=== PATIENT | female | born 1965 | race African-American/Black ===

== ENCOUNTER 2018-04-28 19:20 | Emergency (ER) | payer MEDICAID ==
[~2018-04-28] VITALS: Ht 160 cm; Wt 122.9 kg
[~2018-04-28 19:20] MED LIST: AFRIN15 ML NASAL; ALBUTEROL SULF8.5 GM INH; NORCO 5-325 TA1 EACH ORAL
[2018-04-28 19:34] VITALS: BP 118/66
[2018-04-28] MEDS ORDERED: Bacitracin Oint UD TOPIC ONE (19:45)
--- NOTE | 2018-04-28 19:50 | Emergency Room Report ---
History of Present Illness General Chief Complaint: Wound Recheck/Suture Removal Present Illness HPI 52-year-old female presents to the emergency department complaining of, tenderness, heart needing and mild swelling to the lateral aspect of the right index finger. Patient status post puncture wound by 95 days ago. Patient states that it was a clean knife and does not suspect foreign body however she states she was in a hurry and is not sure she cleaned it well enough. Patient states she is up-to-date with tetanus vaccination. Patient denies erythema, fevers or chills. Patient reports that yesterday she was squeezing the wound and some purulent discharge came out. Patient denies difficulty bending her finger pain with bending the finger joints that are nearby. Allergies: Coded Allergies: NO KNOWN ALLERGIES (Unverified Allergy, Unknown, 07/24/15) Patient History Past Medical History: see triage record Past Surgical History: none Pertinent Family History: none Last Menstrual Period: MENOPAUSE Now: No Immunizations: UTD Reviewed Nursing Documentation: PMH: Agreed; PSxH: Agreed Nursing Documentation-PMH Hx Hypertension: Yes Hx Gastrointestinal Problems: Yes - GERD Review of Systems All Other Systems: negative except mentioned in HPI Physical Exam Vital Signs Date Time Temp Pulse Resp B/P (MAP) Pulse Ox O2 Delivery O2 Flow Rate FiO2 04/28/18 19:24 98.5 72 18 118/66 96 Room Air 98.4 Sp02 EP Interpretation: reviewed, normal General Appearance: no apparent distress, alert, GCS 15, non-toxic Head: normocephalic, atraumatic ENT: hearing grossly normal, normal voice Neck: full range of motion Respiratory: lungs clear, normal breath sounds, speaking full sentences Cardiovascular #1: regular rate, rhythm Musculoskeletal: back normal, gait/station normal, normal range of motion, non- tender Neurologic: alert, oriented x3, responsive, motor strength/tone normal, sensory intact, speech normal, grossly normal Psychiatric: judgement/insight normal Skin: normal color, no rash, warm/dry, well hydrated, other - healing laceration of the lateral right index finger approx 1 cm in length, swelling. induration noted no erythema , no obvious pus/dc noted. palpable scar tissue. Medical Decision Making PA Attestation Dr. Garcia is my supervising Physician whom patient management has been discussed with. Diagnostic Impression: Primary Impression: Puncture wound of finger, right Qualified Codes: S61.239A - Puncture wound without foreign body of unspecified finger without damage to nail, initial encounter ER Course 52-year-old female presents to the emergency department complaining of, tenderness, heart needing and mild swelling to the lateral aspect of the right index finger. Patient status post puncture wound by 95 days ago. Patient states that it was a clean knife and does not suspect foreign body however she states she was in a hurry and is not sure she cleaned it well enough. Patient states she is up-to-date with tetanus vaccination. Patient denies erythema, fevers or chills. Patient reports that yesterday she was squeezing the wound and some purulent discharge came out. Patient denies difficulty bending her finger pain with bending the finger joints that are nearby. Ddx considered but are not limited to laceration, tendon injury, cellulitis, amputation Vital signs: are WNL, pt. is afebrile H&PE are most consistent with: healing laceration of the lateral right index finger approx 1 cm in length, swelling. induration noted no erythema , no obvious pus/dc noted. palpable scar tissue. ORDERS: none required at this time, the diagnosis is clinical ED INTERVENTIONS: -Bacitracin and sterile dressing is applied. Discussed with patient that scar tissue formation is highly likely however due to new onset of tenderness and hx of pus yesterday will place pt onto oral abx. 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 DISCHARGE: At this time pt. is stable for d/c to home. Will provide printed patient care instructions, and any necessary prescriptions. Care plan and follow up instructions have been discussed with the patient prior to discharge. Last Vital Signs Date Time Temp Pulse Resp B/P (MAP) Pulse Ox O2 Delivery O2 Flow Rate FiO2 04/28/18 19:34 98.4 76 18 118/66 96 Room Air 98.4 Disposition: HOME, SELF-CARE Condition: Stable Scripts Cephalexin* (KEFLEX*) 500 Mg Capsule 500 MG ORAL EVERY 12 HOURS for 7 Days, #14 CAP 0 Refills Prov: Tasia Galaviz 04/28/18 Bacitracin/Polymyxin B Sulfate (BACITRACIN-POLYMYXIN OINTMENT) 28.35 Gm Oint...g. 1 APPLIC TP BID, #28.3 GM Prov: Tasia Galaviz 04/28/18 Referrals: NON PHYSICIAN (PCP) Patient Instructions: Wound Check Additional Instructions: Take medications as directed. Follow up with a Primary Care Provider in 3-5 days, even if your symptoms have resolved. --Please review list of primary care clinics, if you do not already have a primary care provider Return sooner to ED if new symptoms occur, or current symptoms become worse. - Please note that this Emergency Department Report was dictated using hikedistribution agent technology software, occasionally this can lead to erroneous entry secondary to interpretation by the dictation equipment. Tasia Galaviz Apr 28, 2018 19:50
[2018-04-28] MEDS ORDERED: BACITRACIN-P28.35 GM TP (19:51)
[2018-04-28] MEDS ORDERED: CEPHALEXIN500 MG ORAL (19:53)
[2018-04-28 20:01] VITALS: BP 118/66
== END 2018-04-28 20:01 | disposition home or self-care (01) ==
LOC: EMR 19:44
DX: Z51.89 Encounter for other specified aftercare (principal); S61.239A Puncture wound without foreign body of unspecified finger without damage to nail, initial encounter; K21.9 Gastro-esophageal reflux disease without esophagitis; I10 Essential (primary) hypertension
CPT/HCPCS: 99283

== ENCOUNTER 2019-06-10 16:53 | Emergency (ER) | payer MEDICAID ==
[~2019-06-10] VITALS: Ht 162.6 cm; Wt 99.8 kg
[~2019-06-10 16:53] MED LIST changes: +BACITRACIN-P28.35 GM TP; +CEPHALEXIN500 MG ORAL; +COLACE100 MG ORAL; +COUMADIN4 MG ORAL; +FLECAINIDE ACET50 M1 PO; +IRON325 M1 PO; +MICROZIDE12.5 M1 PO; +MULTIVITAMINS1 EAC2 ORAL; +VITAMIN C250 MG ORAL
[2019-06-10 17:06] VITALS: BP 128/77
--- NOTE | 2019-06-10 17:07 | NUR ---
ED Nurse Note: pt walked in to ED for C/O headache in the frontal head area. pt also c/o dizziness and blurry vision while she was driving which happened about 30 min prior. pt is alert x4. VSS
--- NOTE | 2019-06-10 17:27 | NUR ---
ED Nurse Note: blood and urine sample sent down to lab. pt was taken to take CT by tech
[2019-06-10 17:40] LABS: APPEARANCE,URINE CLOUDY; BILIRUBIN, URINE NEGATIVE (NEGATIVE); GLUCOSE, URINE (UA) NEGATIVE (NEGATIVE); KETONES,URINE NEGATIVE (NEGATIVE); LEUKOCYTE ESTERASE ,URINE 3+ (NEGATIVE); NITRITE,URINE NEGATIVE (NEGATIVE); PH,URINE 6 (4.5-8.0); PROTEIN,URINE 2+ (NEGATIVE); UROBILINOGEN,URINE NORMAL MG/DL (0.0-1.0)
--- NOTE | 2019-06-10 17:42 | Emergency Room Report ---
History of Present Illness General Chief Complaint: Dizziness Source: Patient Present Illness HPI Disclaimer: Please note that this report is being documented using DRAGON technology. This can lead to erroneous entry secondary to incorrect interpretation by the dictating instrument. HPI: 53-year-old female with a history of atrial fibrillation on Xarelto, recent gastric sleeve procedure, history of migraine headaches presents for evaluation of sudden onset headache, blurred vision and lightheadedness. Symptoms began approximately 30 minutes prior to arrival while the patient was driving. She noted a sudden pounding headache over the front and behind the eyes associated with some blurred vision. She has a history of migraine headaches but states this is unusual for her to have blurred vision. It was a 9 /10 intensity. Patient states her headache is improving and is currently a 2/ 10. Vision is returned to normal. She was driving with family at the time who denies any dysarthria or facial droop. She denied any weakness or paresthesias. She is currently denying any chest pain, shortness of breath, abdominal pain, nausea, vomiting, neck or back pain. PMH: Atrial fibrillation, migraine headaches PSH: Endometrial ablation, gastric sleeve procedure Allergies: None reported Social Hx: Social alcohol use, denies smoking Allergies: Coded Allergies: NO KNOWN ALLERGIES (Unverified Allergy, Unknown, 07/24/15) Patient History Last Menstrual Period: menopause Nursing Documentation-PMH Hx Cardiac Problems: Yes - anemia Hx Hypertension: Yes - A-fib/ A-flutter Hx Pacemaker: No Hx Asthma: No Hx COPD: No Hx Diabetes: No Hx Cancer: No Hx Gastrointestinal Problems: Yes - GERD, Batric surgery Hx Dialysis: No History Of Psychiatric Problem: No Hx Neurological Problems: Yes - Migraine headache Hx Cerebrovascular Accident: No Hx Seizures: No Review of Systems All Other Systems: negative except mentioned in HPI Physical Exam Vital Signs Date Time Temp Pulse Resp B/P (MAP) Pulse Ox O2 Delivery O2 Flow Rate FiO2 06/10/19 16:57 98.2 68 16 137/83 (101) 96 Room Air 06/10/19 17:06 100 General: Awake and alert, no acute distress HEENT: NC/AT. EOMI. PERRLA. Visual enrique are full. No nystagmus. Facial expressions are symmetrical. No facial droop. Cardiovascular: RRR. S1 and S2 normal. No murmur appreciated Resp: Normal work of breathing. No cough, wheezing or crackles appreciated Abdomen: Abdomen is soft, nondistended. Nontender Skin: Intact. No abrasions, laceration or rash over the exposed skin MSK: Normal tone and bulk. Moving all extremities. No obvious deformity. There is no drift in the upper or lower extremities bilaterally. Neuro: Awake and alert. Mentating appropriately. Facial expression symmetrical. No dysarthria, no ataxia on [id number] or [id number] testing. Sensation to light touch is intact over the upper and lower extremities. The patient has intact speech with good repetition, comprehension. Fund of knowledge is full. No aphasia, no neglect. NIH: 0 Medical Decision Making Diagnostic Impression: Primary Impression: UTI (urinary tract infection) Additional Impression: Headache ER Course 53-year-old female presents for evaluation of acute onset headache, blurred vision and lightheadedness. Patient is on Xarelto for atrial fibrillation and recently started flecainide as well. Biggest concern is for spontaneous intracranial hemorrhage. Will obtain noncontrast CT scan, blood work and treat the patient with IV fluids and Tylenol. Disposition dependent on injury imaging and lab results. Her symptoms are improving and she has a nonfocal neurologic exam. Laboratory Tests Test 06/10/19 17:25 White Blood Count 9.7 K/UL (4.8-10.8) Red Blood Count 4.53 M/UL (4.20-5.40) Hemoglobin 13.5 G/DL (12.0-16.0) Hematocrit 40.7 % (37.0-47.0) Mean Corpuscular Volume 90 FL (80-99) Mean Corpuscular Hemoglobin 29.8 PG (27.0-31.0) Mean Corpuscular Hemoglobin Concent 33.2 G/DL (32.0-36.0) Red Cell Distribution Width 11.6 % (11.6-14.8) Platelet Count 249 K/UL (150-450) Mean Platelet Volume 7.1 FL (6.5-10.1) Neutrophils (%) (Auto) 60.9 % (45.0-75.0) Lymphocytes (%) (Auto) 31.7 % (20.0-45.0) Monocytes (%) (Auto) 5.5 % (1.0-10.0) Eosinophils (%) (Auto) 1.1 % (0.0-3.0) Basophils (%) (Auto) 0.8 % (0.0-2.0) Prothrombin Time 10.6 SEC (9.30-11.50) Prothrombin Time INR 1.0 (0.9-1.1) PTT 25 SEC (23-33) Urine Color Yellow Urine Appearance Cloudy Urine pH 6 (4.5-8.0) Urine Specific [place] 1.020 (1.005-1.035) Urine Protein 2+ (NEGATIVE) H Urine Glucose (UA) Negative (NEGATIVE) Urine Ketones Negative (NEGATIVE) Urine Blood 2+ (NEGATIVE) H Urine Nitrite Negative (NEGATIVE) Urine Bilirubin Negative (NEGATIVE) Urine Urobilinogen Normal MG/DL (0.0-1.0) Urine Leukocyte Esterase 3+ (NEGATIVE) H Urine RBC 5-10 /HPF (0 - 2) H Urine WBC 60-80 /HPF (0 - 2) H Urine Squamous Epithelial Cells Moderate /LPF (NONE/OCC) H Urine Bacteria Moderate /HPF (NONE) H Sodium Level 145 MMOL/L (136-145) Potassium Level 3.9 MMOL/L (3.5-5.1) Chloride Level 107 MMOL/L (98-107) Carbon Dioxide Level 29 MMOL/L (21-32) Anion Gap 9 mmol/L (5-15) Blood Urea Nitrogen 10 mg/dL (7-18) Creatinine 0.7 MG/DL (0.55-1.30) Estimate Glomerular Filtration Rate > 60 mL/min (>60) Glucose Level 96 MG/DL (74-106) Calcium Level 9.6 MG/DL (8.5-10.1) Total Bilirubin 0.7 MG/DL (0.2-1.0) Aspartate Amino Transferase (AST) 14 U/L (15-37) L Alanine Aminotransferase (ALT) 22 U/L (12-78) Alkaline Phosphatase 94 U/L (46-116) Troponin I 0.000 ng/mL (0.000-0.056) Total Protein 7.3 G/DL (6.4-8.2) Albumin 3.6 G/DL (3.4-5.0) Globulin 3.7 g/dL Albumin/Globulin Ratio 1.0 (1.0-2.7) Triglycerides Level 129 MG/DL (30-150) Cholesterol Level 230 MG/DL (< 200) H LDL Cholesterol 146 mg/dL (<100) H HDL Cholesterol 59 MG/DL (40-60) Cholesterol/HDL Ratio 3.9 (3.3-4.4) EKG Diagnostic Results EKG Time: 17:51 Rate: normal Rhythm: NSR ST Segments: no acute changes Other Impression Sinus rhythm, slight left axis deviation, no ST segment changes. Slightly prolonged NC interval at 204 ms. Rhythm Strip Diag. Results Rhythm Strip Time: 17:51 EP Interpretation: yes Rate: 60s Rhythm: NSR, no PVC's, no ectopy Reevaluation Time: 19:04 Last Vital Signs Date Time Temp Pulse Resp B/P (MAP) Pulse Ox O2 Delivery O2 Flow Rate FiO2 06/10/19 17:06 75 18 Room Air 100 06/10/19 17:06 98.2 128/[address] of the head is unremarkable. Remainder lab work is returned within normal limits aside from evidence of a urinary tract infection. Patient states she is not symptomatic but has had asymptomatic UTIs in the past. Her headache is improved. She will be treated with Keflex as an outpatient and follow-up closely with her PMD. We discussed reasons to return to the emergency department. She understands and agrees with this treatment plan was discharged home. Disposition: HOME, SELF-CARE Condition: Stable Scripts Cephalexin* (KEFLEX*) 500 Mg Capsule 500 MG ORAL EVERY 12 HOURS, #14 CAP 0 Refills Prov: Ruslan Melgoza MD 06/10/19 Referrals: [facility],REFERR[facility] (PCP) Ruslan Melgoza MD Jun 10, 2019 17:42
[2019-06-10 17:43] LABS: COLOR,URINE YELLOW
[2019-06-10 17:44] LABS: BASOPHILS % (AUTO) 0.8 % (0.0-2.0); EOSINOPHILS % (AUTO) 1.1 % (0.0-3.0); HEMATOCRIT 40.7 % (37.0-47.0); HEMOGLOBIN 13.5 G/DL (12.0-16.0); LYMPHOCYTES % (AUTO) 31.7 % (20.0-45.0); MEAN CORPUSCULAR VOLUME 90 FL (80-99); MONOCYTES % (AUTO) 5.5 % (1.0-10.0); NEUTROPHILS % (AUTO) 60.9 % (45.0-75.0); PLATELET COUNT 249 K/UL (150-450); RED BLOOD COUNT 4.53 M/UL (4.20-5.40); RED CELL DISTRIBUTION WIDTH 11.6 % (11.6-14.8); WHITE BLOOD COUNT 9.7 K/UL (4.8-10.8)
[2019-06-10] MEDS ORDERED: Acetaminophen 500mg (ES) tab ORAL ONE (17:45)
--- NOTE | 2019-06-10 17:52 | Diagnostic Imaging Report ---
Indications: Headache and dizziness, history of head trauma Technique: Spiral acquisitions obtained through the brain. Angled axial and coronal 5 x 5 mm slices were reconstructed. Total dose length product 1334 mGycm. CTDI vol(s) 6 mGy. Dose reduction achieved using automated exposure control Comparison: None. Findings: No acute intracranial hemorrhage or edema. No mass effect nor midline shift. Normal to-white differentiation. Normal size ventricles and extra axial CSF spaces. Visualized orbits and sinuses are unremarkable. Intact calvarium. The mastoids are clear. Impression: Negative The CT scanner at [facility] is accredited by the [employer] and the scans are performed using protocols designed to limit radiation exposure to as low as reasonably achievable to attain images of sufficient resolution adequate for diagnostic evaluation.
[2019-06-10 17:53] LABS: ANION GAP 9 mmol/L (5-15); BLOOD UREA NITROGEN 10 mg/dL (7-18); CALCIUM 9.6 MG/DL (8.5-10.1); CARBON DIOXIDE 29 MMOL/L (21-32); CHLORIDE 107 MMOL/L (98-107); CREATININE 0.7 MG/DL (0.55-1.30); POTASSIUM 3.9 MMOL/L (3.5-5.1); SODIUM 145 MMOL/L (136-145)
[2019-06-10 17:58] LABS: ALANINE AMINOTRANSFERASE 22 U/L (12-78); ALBUMIN 3.6 G/DL (3.4-5.0); ALKALINE PHOSPHATASE 94 U/L (46-116); ASPARTATE AMINO TRANSFERASE 14 U/L (15-37); BILIRUBIN,TOTAL 0.7 MG/DL (0.2-1.0); CHOLESTEROL 230 MG/DL (< 200); HDL CHOLESTEROL 59 MG/DL (40-60); TRIGLYCERIDES 129 MG/DL (30-150)
[2019-06-10] MEDS ORDERED: CEPHALEXIN500 MG ORAL (18:24)
[2019-06-10 19:12] VITALS: BP 130/78
--- NOTE | 2019-06-10 19:12 | NUR ---
ER DISCHARGE NOTE: Patient is cleared to be discharged per ERMD, pt is aox4, on room air, with stable vital signs. pt was given dc and prescription instructions, pt was able to verbalize understanding, pt id band and iv site removed without complications. pt is able to ambulate with steady gait. pt took all belongings.
--- NOTE | 2019-06-11 17:51 | Cardiology Report ---
APPROVED REPORT EKG Measurement Heart [id number] Normal sinus rhythm Normal ECG
== END 2019-06-10 19:12 | disposition home or self-care (01) ==
LOC: EMR 17:30
DX: R51 Headache (principal); N39.0 Urinary tract infection, site not specified; K21.9 Gastro-esophageal reflux disease without esophagitis; Z98.84 Bariatric surgery status; I48.91 Unspecified atrial fibrillation; Z79.01 Long term (current) use of anticoagulants
CPT/HCPCS: 36415; 70450; 80053; 80061; 81003; 82962; 84484; 85025; 85610; 85730; 87086; 93005; 96360; Z7502; 99284; J7030

== ENCOUNTER 2020-08-12 17:23 | Emergency (ER) | payer MEDICAID, OTHER ==
[~2020-08-12] VITALS: Ht 162.6 cm; Wt 108.9 kg
--- NOTE | 2020-08-12 17:55 | NUR ---
ED Nurse Note: Patient from home and walked in due to coughing, body pain, sore throat and congestion x 3 days. patient tested covid (+) today 08/12/20. 104 hr, other vss, afebrile 98.4 temp, a/ox4.
[2020-08-12 17:56] VITALS: BP 127/74
--- NOTE | 2020-08-12 19:02 | Emergency Room Report ---
History of Present Illness General Chief Complaint: Upper Respiratory Illness Source: Patient, Medical Record Present Illness HPI 54 YO female w. 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 COVID-19 Screening: Positive COVID-19 COVID-19 Testing Source: 08/12/20 Patient History Now: No Nursing Documentation-PMH Past Medical History: No History, Except For Hx Cardiac Problems: Yes - anemia Hx Hypertension: Yes - A-fib/ A-flutter Hx Pacemaker: No Hx Asthma: No Hx COPD: No Hx Diabetes: No Hx Cancer: No Hx Gastrointestinal Problems: Yes - GERD, Batric surgery Hx Dialysis: No Hx Neurological Problems: Yes - Migraine headache Hx Cerebrovascular Accident: No Hx Seizures: No Review of Systems All Other Systems: negative except mentioned in HPI Physical Exam Vital Signs Date Time Temp Pulse Resp B/P (MAP) Pulse Ox O2 Delivery O2 Flow Rate FiO2 08/12/20 17:33 98.4 108 18 127/74 (91) 95 Room Air Medical Decision Making PA Attestation Dr. Campoverde Is my supervising Physician whom patient management has been discussed with. Diagnostic Impression: Primary Impression: Upper respiratory tract infection due to COVID-19 virus ER Course Pt. presents to the ED c/o cough congestion body aches, fevers, chills and headaches x [ ] Ddx considered but are not limited to URI, pneumonia, PE, strep pharyngitis, meningitis, COVID-19 Vital signs: Pt. is afebrile, the remaining VS are WNL. H&PE are most consistent with URI- no meningeal signs, oropharynx is not involved, no evidence of bacterial infection at this time. ORDERS: none required at this time, the diagnosis is clinical ED INTERVENTIONS: None required at this time. DISCHARGE: At this time pt. is stable for d/c to home. Will provide printed patient care instructions, and any necessary prescriptions. Care plan and follow up instructions have been discussed with the patient prior to discharge. Last Vital Signs Date Time Temp Pulse Resp B/P (MAP) Pulse Ox O2 Delivery O2 Flow Rate FiO2 08/12/20 17:58 108 18 Room Air 08/12/20 17:56 98.4 127/74 95 Disposition: HOME, SELF-CARE Condition: Stable Referrals: [facility]REFERR[facility] (PCP) Patient Instructions: Upper Respiratory Infection, Adult, [id number] Additional Instructions: Take medications as directed. Follow up with a Primary Care Provider in 3-5 days, even if your symptoms have resolved. --Please review list of primary care clinics, if you do not already have a primary care provider Return sooner to ED if new symptoms occur, or current symptoms become worse. - Please note that this Emergency Department Report was dictated using Isogenicawash driller helper technology software, occasionally this can lead to erroneous entry secondary to interpretation by the dictation equipment. Tasia Galaviz Aug 12, 2020 19:02
--- NOTE | 2020-08-12 19:19 | NUR ---
HAND-OFF: Report given to yesenia sanchez.
[2020-08-12] MEDS ORDERED: PREDNISONE20 MG ORAL (19:20)
[2020-08-12] MEDS ORDERED: ROBITUSSIN COU237 M2 PO (19:20)
[2020-08-12] MEDS ORDERED: ZITHROMAX250 MG ORAL (19:20)
[2020-08-12] MEDS ORDERED: ALBUTEROL SULF8.5 G1 INH (19:20)
--- NOTE | 2020-08-12 19:35 | NUR ---
ED Nurse Note: Patient did not sign discharge paperwork. patient's prescription was sent electronically to her preferred pharmacy. patient was given information regarding home isolation, at time of discharge patient in no distress, satting at 97% with an tympanic temp of 98.2. patient ambulated out ED with a steady gait and has taken all her belongings with her.
[2020-08-12 21:20] VITALS: BP 135/72
--- NOTE | 2020-08-13 09:13 | Diagnostic Imaging Report ---
Indication: Chest pain Technique: One view of the chest Comparison: none Findings: There are 2 or 3 subtle nodular opacities in the periphery of the left midlung. There is slight blunting of the left costophrenic sulcus. Heart size is normal Impression: Left midlung opacities, may represent small focal infiltrates, as electronic medical record describes history of Covid positivity. Correlate with clinical findings Possible small left pleural effusion
== END 2020-08-12 21:20 | disposition home or self-care (01) ==
LOC: EMR 17:49
DX: U07.1 COVID-19 (principal); J06.9 Acute upper respiratory infection, unspecified; I48.91 Unspecified atrial fibrillation
CPT/HCPCS: 71045; Z7502; 99283